=== PATIENT | female | born 1965 | race Caucasian/White ===

== ENCOUNTER 2020-05-03 12:50 | Emergency (ER) | payer OTHER, SELFPAY ==
--- NOTE | ~2020-05-03 | XR_ITS ---
EXAMINATION: XR chest 2V DATE: 05/03/2020 13:24 INDICATION: Cough. TECHNIQUE: Frontal and lateral views of the chest were obtained. COMPARISON: None. FINDINGS: The chest demonstrates clear lungs without pneumonia, pleural effusion, or pneumothorax. Th e heart size is normal. IMPRESSION: 1. No acute cardiopulmonary disease. Reviewed, dictated and finalized at location A. [employer] PHARMACIST
[2020-05-03 12:57] VITALS: BP 139/92; PULSE 97; RESP 14; TEMP 36.5; O2SAT 98
--- NOTE | 2020-05-03 13:15 | ED.URI ---
HPI - URI/Sore Throat General Chief Complaint: Upper Respiratory Infection Stated Complaint: cough and chest ache Source: patient Mode of arrival: ambulatory Limitations: no limitations History of Present Illness HPI Narrative: Patient is a 55-year-old female who presents complaining of cough, congestion, and wheezing x6 days. She denies fever. She reports intermittent shortness of breath during coughing. She denies known exposure to Covid. She denies fever. She denies taking any pyqn-[id number] meds for symptom relief. MD elicited complaint: cough Related Data Home Medications Medication Instructions Recorded Confirmed duloxetine 30 mg PO DAILY 05/03/20 05/03/20 hydrocodone-acetaminophen 1 tablet PO Q6H 05/03/20 05/03/20 pregabalin 75 mg PO DAILY 05/03/20 05/03/20 Allergies Allergy/AdvReac Type Severity Reaction Status Date / Time codeine Allergy Mild Unknown Unverified 05/03/20 13:21 lisinopril AdvReac Cough Verified 05/03/20 13:21 powder AdvReac Other Uncoded 05/03/20 13:22 Review of Systems Review of Systems: Narrative: CONSTITUTIONAL: Denies fever, chills, or sweats. EYES: Denies visual changes, redness, or discharge. ENT: Denies rhinorrhea, congestion, sore throat, or otalgia. CARDIOVASCULAR: Denies chest pain, palpitations, or edema. RESPIRATORY: Reports cough and dyspnea. GASTROINTESTINAL: Denies abdominal pain, nausea, vomiting, or diarrhea. GENITOURINARY: Denies dysuria or hematuria. SKIN: Denies rash or itching. MUSCULOSKELETAL: Denies back pain, joint pain, or myalgia. NEUROLOGIC: Denies headache, numbness, dizziness, or weakness. PSYCHIATRIC: Denies anxiety or depression. [facility] Past Medical History Medical History Back pain with history of spinal surgery Chronic back pain Surgical History Surgical History H/O foot surgery History of hysterectomy Previous back surgery Social History Social History (Updated 05/03/20 @ 13:21 by LUIS F Beach) Smoking status: Current every day smoker Alcohol intake: never Substance use: never Living arrangements: with family Exam Narrative: Exam Narrative: GENERAL: Well-appearing, well-nourished, and in no acute distress. HEAD: Normocephalic, atraumatic. EYES: No redness or drainage. ENT: Mucous membranes pink and moist. CHEST: No respiratory distress. Diminished lung sounds bilaterally, intermittent wheezing HEART: Regular rate and rhythm. EXTREMITIES: Normal range of motion. No edema. SKIN: Warm, dry, no rash. NEURO: No focal deficits. Alert and oriented x3. Gait steady. PSYCH: Normal affect. No signs of depression or anxiety. Course Vital Signs Vital signs: Vital Signs Temperature 36.5 C 05/03/20 12:57 Pulse Rate 97 05/03/20 12:57 Respiratory Rate 14 05/03/20 12:57 Blood Pressure 139/92 H 05/03/20 12:57 Pulse Oximetry 98 05/03/20 12:57 Temperature 36.5 C 05/03/20 12:57 Pulse Rate 97 05/03/20 12:57 Respiratory Rate 14 05/03/20 12:57 Blood Pressure 139/92 H 05/03/20 12:57 Pulse Oximetry 98 05/03/20 12:57 Reviewed. Patient has been instructed to follow-up with her PCP regarding her blood pressure. MDM - URI/Sore Throat MDM Narrative Medical decision making narrative: Chest x-ray negative for acute disease. Patient reports a history of bronchitis, current smoker. Patient to be started on albuterol inhaler. Patient also to be sent for Covid testing. Patient is stable for discharge to home with outpatient follow-up as directed. Patient agrees with plan of care. Differential Diagnosis Differential diagnosis: Likely upper respiratory infection, viral infection and bronchitis Critical Care Time Critical Care Time Critical Care Time: No Discharge Plan Discharge Clinical Impression: Bronchitis, Encounter for laboratory testing for COVID-19 virus Patient Disposition: H
== END 2020-05-03 13:35 | disposition home or self-care (01) ==
PROVIDERS: Emergency Provider Nurse Practitioner
DX: J40 Bronchitis, not specified as acute or chronic (principal); Z20.828 Contact with and (suspected) exposure to other viral communicable diseases; F17.200 Nicotine dependence, unspecified, uncomplicated
CPT/HCPCS: 71046; 99213; G0463

== ENCOUNTER 2021-09-21 16:16 | Emergency (ER) | payer OTHER, SELFPAY ==
[2021-09-21 16:37] VITALS: BP 124/82; PULSE 77; RESP 18; TEMP 36.9; O2SAT 96
--- NOTE | 2021-09-21 17:41 | ED.URI ---
HPI - URI/Sore Throat General Chief Complaint: Upper Respiratory Infection Stated Complaint: cough congestion Time Seen by Provider: 09/21/21 17:41 Source: patient and RN notes reviewed Mode of arrival: ambulatory Limitations: no limitations History of Present Illness HPI Narrative: 56-year-old female presents with concern for 2-week history of productive cough. Reports symptoms are getting worse worse with chest burning with coughing, not being able to sleep at night. Reports she quit smoking 2 weeks ago. She denies fever, bodies, chills, sweats. Reports she is tried multiple qkri-dpa-kjhckoc remedies without relief MD elicited complaint: sore throat Related Data Home Medications Medication Instructions Recorded Confirmed hydrocodone-acetaminophen 1 tablet PO Q6H 05/03/20 09/21/21 Allergies Allergy/AdvReac Type Severity Reaction Status Date / Time codeine Allergy Mild Unknown Verified 09/21/21 17:16 lisinopril AdvReac Cough Verified 09/21/21 17:16 powder AdvReac Other Uncoded 05/03/20 13:22 Review of Systems Review of Systems: CONSTITUTIONAL: Denies malaise, chills, sweats, or fever. EYES: Denies visual changes, redness, or discharge. ENT: Reports rhinorrhea. Denies congestion, sinus pain, otalgia and sore throat. CARDIOVASCULAR: Denies chest pain, palpitations, or edema. RESPIRATORY: Reports persistent cough. Denies dyspnea. GASTROINTESTINAL: Denies abdominal pain, nausea, vomiting, diarrhea SKIN: Denies rash or itching. MUSCULOSKELETAL: Denies myalgia. NEUROLOGIC: Denies headache. All systems reviewed & are unremarkable except as noted in HPI and below PMFSH Past Medical History Medical History (Updated 09/21/21 @ 17:46 by Harriett Cerda NP) Back pain with history of spinal surgery Chronic back pain Cough Surgical History Surgical History H/O foot surgery History of hysterectomy Previous back surgery Social History Social History (Updated 05/03/20 @ 13:21 by Tiffanie Francisco, [employer]) Smoking status: Current every day smoker Alcohol intake: never Substance use: never Comments At time of signature, agree with nursing past medical, surgical, social and family history. There is no relevant family history pertinent to the presenting complaint Exam Narrative: GENERAL: Well-appearing, well-nourished, and in no acute distress. HEAD: Normocephalic EYES: PERRLA, conjunctivae clear ENT: Nares clear, clear discharge. Mucous membranes moist. TM pearly fountain with dull light reflex bilaterally; no tragal tenderness. Oropharynx not erythematous without lesions. Tonsils not enlarged and without exudate, no drooling, no hoarseness, no trismus, uvula midline. NECK: Supple. No lymphadenopathy CHEST: Clear to auscultation, breath sounds equal. No wheezing, rhonchi, rales, or stridor. No respiratory distress, speaks in full sentences. HEART: Regular rate and rhythm. No murmur heard. SKIN: Warm, dry, no rash. NEURO: Alert and oriented x3. PSYCH: Normal mood and affect Course Course Emergency Course: Patient is aware of diagnosis, understands and agrees to treatment plan. Anticipatory guidance given. Patient agrees to follow-up as directed and is aware of reasons to seek care at the emergency department. Portions of this record may have been created with voice recognition software Level of Care: Express Care Visit Vital Signs Vital signs: Vital Signs Temperature 98.5 F 09/21/21 16:37 Pulse Rate 77 09/21/21 16:37 Respiratory Rate 18 09/21/21 16:37 Blood Pressure 124/82 09/21/21 16:37 Pulse Oximetry 96 09/21/21 16:37 Temperature 98.5 F 09/21/21 16:37 Pulse Rate 77 09/21/21 16:37 Respiratory Rate 18 09/21/21 16:37 Blood Pressure 124/82 09/21/21 16:37 Pulse Oximetry 96 09/21/21 16:37 Reviewed. MDM - URI/Sore Throat MDM Narrative Medical decision making narrative: Differential diagnosis considered: [facility]ady
== END 2021-09-21 17:52 | disposition home or self-care (01) ==
PROVIDERS: Emergency Provider Nurse Practitioner; PCP Internal Medicine
DX: J06.9 Acute upper respiratory infection, unspecified (principal)
CPT/HCPCS: 99213; G0463

== ENCOUNTER 2022-12-04 12:16 | Emergency (ER) | payer OTHER, SELFPAY ==
[2022-12-04 12:27] VITALS: BP 144/71; PULSE 90; RESP 16; TEMP 36.4; O2SAT 100
--- NOTE | 2022-12-04 13:15 | ED.GENADULT ---
HPI - General Adult General Chief complaint: Upper Respiratory Infection Stated complaint: Cough Source: patient Mode of arrival: ambulatory Limitations: no limitations History of Present Illness HPI narrative: Patient presents for evaluation of cough. Symptom onset 2 weeks ago. At time of symptom onset she also had body aches, sore throat, nausea, vomiting. Those symptoms have all resolved. Cough is productive of clear sputum. She denies any shortness of breath. No fever or chills. No recent sick contacts to her knowledge. She smokes 1 ppd. She has tried DayQuil, NyQuil, delsym for her symptoms without considerable improvement. She has had bronchitis in the past and this feels similar. Historically she has responded well to steroids. Related Data Home Medications Medication Instructions Recorded Confirmed hydrocodone 5 mg-acetaminophen 325 1 tablet PO Q6H 05/03/20 12/04/22 mg tablet albuterol sulfate 90 mcg/actuation 2 puff inhalation Q4H PRN 12/04/22 12/04/22 aerosol inhaler Shortness Of Breath Or Wheezing duloxetine 30 mg capsule,delayed 30 mg PO DAILY 12/04/22 12/04/22 release losartan 25 mg tablet 25 mg PO DAILY 12/04/22 12/04/22 pregabalin 75 mg capsule 75 mg PO BID 12/04/22 12/04/22 Allergies Allergy/AdvReac Type Severity Reaction Status Date / Time codeine Allergy Mild Unknown Verified 09/21/21 17:16 lisinopril AdvReac Mild Cough Verified 12/04/22 12:25 powder AdvReac Mild Other Uncoded 12/04/22 12:25 Review of Systems Review of Systems: CONSTITUTIONAL: Denies fever, chills, or sweats. EYES: Denies visual changes, redness, or discharge. ENT: Denies rhinorrhea, congestion, sore throat, or otalgia. CARDIOVASCULAR: Denies chest pain, palpitations, or edema. RESPIRATORY: Reports productive cough of clear sputum. Denies shortness of breath. GASTROINTESTINAL: Denies abdominal pain, nausea, vomiting, or diarrhea. GENITOURINARY: Denies dysuria or hematuria. SKIN: Denies rash or itching. MUSCULOSKELETAL: Denies back pain, joint pain, or myalgia. NEUROLOGIC: Denies headache, numbness, dizziness, or weakness. PSYCHIATRIC: Denies anxiety or depression. [facility] Past Medical History Medical History Back pain with history of spinal surgery Chronic back pain Cough Surgical History Surgical History (Reviewed 12/04/22 @ 13:31 by Carmelo Delvalle [facility], ) H/O foot surgery History of hysterectomy Previous back surgery Family History Family History (Updated 12/04/22 @ 13:31 by Carmelo Delvalle [facility], ) Mother Family history non-contributory Social History Social History (Updated 12/04/22 @ 13:32 by Carmelo Delvalle [facility], ) Smoking packs per day: 1 Smoking cigarettes per day: 20.0 Smoking status: Current every day smoker Alcohol intake: never Substance use: never Living arrangements: with family Gender identity (if verbalized by the patient): Female Spiritual care concerns: No Exam Narrative: GENERAL: Well-appearing, well-nourished, and in no acute distress. HEAD: Normocephalic, atraumatic. EYES: PERRLA and EOMI. ENT: Nares clear, no rhinorrhea or epistaxis. Mucous membranes moist. Oropharynx without tonsillar hypertrophy exudate or other lesions. Bilateral TMs pearly fountain nonbulging NECK: Supple. No adenopathy or masses. No carotid bruits or JVD CHEST: Clear to auscultation. No respiratory distress. No wheezes rales or rhonchi HEART: Regular rate and rhythm. No murmur heard. Normal peripheral pulses. ABDOMEN: Soft, nontender, nondistended, normal active bowel sounds. EXTREMITIES: Normal range of motion. No edema. SKIN: Warm, dry, no rash. NEURO: No focal deficits. Alert and oriented x3. PSYCH: Normal mood and affect. Course Course Emergency Course: This is a 57-year-old female who presented for evaluation of cough. It I offered to check a chest x-ray, which she declined. She indicates s
== END 2022-12-04 13:00 | disposition home or self-care (01) ==
PROVIDERS: Emergency Provider Nurse Practitioner; PCP Family Medicine
DX: J40 Bronchitis, not specified as acute or chronic (principal); F17.210 Nicotine dependence, cigarettes, uncomplicated
CPT/HCPCS: 99213; G0463

== ENCOUNTER 2023-11-08 17:53 | Emergency (ER) | payer OTHER, SELFPAY ==
[2023-11-08 17:58] VITALS: BP 168/85; PULSE 70; RESP 18; TEMP 36.5; O2SAT 100
--- NOTE | 2023-11-08 18:26 | ED.URI ---
HPI - URI/Sore Throat General Chief Complaint: Upper Respiratory Infection Stated Complaint: Cough Source: patient Mode of arrival: ambulatory Limitations: no limitations History of Present Illness HPI Narrative: 58-year-old female presented for complaint of productive cough over the past 3 weeks. She endorses nasal congestion and drainage. States cough causes lack of sleep and has led to vomiting. Has taken multiple lamo-tdr-xhoprzw medication without relief. She states she ran out of her albuterol inhaler earlier in the week. She denies shortness of breath, chest pain, heart racing, nausea, vomiting, diarrhea, fevers or chills. Currently trying to quit smoking, down to half pack per day from 1.5ppd. Related Data Home Medications Medication Instructions Recorded Confirmed duloxetine 30 mg capsule,delayed 30 mg PO DAILY 12/04/22 11/08/23 release losartan 25 mg tablet 25 mg PO DAILY 12/04/22 11/08/23 pregabalin 75 mg capsule 75 mg PO BID 12/04/22 11/08/23 pantoprazole 40 mg tablet,delayed 40 mg PO DAILY 11/08/23 11/08/23 release Allergies Allergy/AdvReac Type Severity Reaction Status Date / Time codeine Allergy Mild Unknown Verified 11/08/23 18:10 lisinopril AdvReac Mild Cough Verified 11/08/23 18:10 powder AdvReac Mild Other Uncoded 11/08/23 18:10 Review of Systems Review of Systems: CONSTITUTIONAL: Denies body aches, fever, chills, or sweats. EYES: Denies visual changes, redness, or discharge. ENT: reports rhinorrhea, congestion, denies sore throat, or otalgia. CARDIOVASCULAR: Denies chest pain, palpitations, or edema. RESPIRATORY: Reports cough, denies sob, wheezing. GASTROINTESTINAL: Denies abdominal pain, nausea, vomiting, or diarrhea. SKIN: Denies rash, itching, or wounds. MUSCULOSKELETAL: Denies back pain, joint pain, or myalgia. NEUROLOGIC: Denies headache, numbness, tingling, or weakness. All systems reviewed & are unremarkable except as noted in HPI and below PMFSH Past Medical History Medical History Back pain with history of spinal surgery Chronic back pain Cough Surgical History Surgical History H/O foot surgery History of hysterectomy Previous back surgery Family History Family History Mother Family history non-contributory Social History Social History Smoking packs per day: 1 Smoking cigarettes per day: 20.0 Smoking status: Current every day smoker Alcohol intake: never Substance use: never Living arrangements: with family Gender identity (if verbalized by the patient): Female Spiritual care concerns: No Comments At time of signature, I have reviewed and agree with nursing past medical, surgical, social and family history unless otherwise noted. Please see nursing chart for further information. There is no relevant family history pertinent to the presenting complaint Exam Narrative: GENERAL: Well-appearing, in no acute distress. EYES: EOMI. No redness or drainage. Conjunctivae normal. ENT: Mucous membranes pink and moist. No rhinorrhea. TMs normal bilaterally. Throat normal. Uvula midline. NECK: Normal AROM. Supple. CHEST: No respiratory distress. Lungs clear and diminished. HEART: Regular rate and rhythm. No murmur appreciated. ABDOMEN: Soft, nontender, nondistended, normal active bowel sounds. EXTREMITIES: Normal range of motion. No edema. SKIN: Warm, dry, no rash. Capillary refill normal. Normal skin turgor. NEURO: Alert and oriented x3. Gait steady. PSYCH: Normal affect. Course Course Emergency Course: Patient is aware of diagnosis, understands and agrees to treatment plan. Anticipatory guidance given. Patient agrees to follow-up as directed and is aware of reasons to seek care at the emergency departmen
== END 2023-11-08 18:45 | disposition home or self-care (01) ==
PROVIDERS: Emergency Provider Nurse Practitioner Family; PCP Family Medicine
DX: J40 Bronchitis, not specified as acute or chronic (principal); F17.210 Nicotine dependence, cigarettes, uncomplicated
CPT/HCPCS: 99213; G0463

== ENCOUNTER 2024-08-17 11:04 | Emergency (ER) | payer OTHER, SELFPAY ==
[2024-08-17 11:16] VITALS: BP 170/84; PULSE 55; RESP 20; TEMP 36.6; O2SAT 97
--- OUTSIDE RECORDS SUMMARY | 2024-08-17 11:16 | XMS_ITS | Clinical Summary ---
Author Organization [facility] Address [address], [facility] [address] [place] [address] Phone Care Team Providers Care Director Fraud Name Role Phone Hari Alcantara MD Primary Care Provider [phone] Allergies Active Allergy Reactions Criticality Noted Date Comments Codeine Other (see Comments) 07/29/2015 CHEST PAIN Nsaids Nausea 03/03/2017 Medications naproxen (NAPROSYN) 500 MG Tablet Take 1 Tab by mouth 2 times daily as needed for Pain. 20 Tab 0 6 Active losartan (COZAAR) 50 MG Tablet Take 1 Tab by mouth 2 times daily. 60 Tab 3 6 Active Additional Information Patient taking differently:50 mg OralDAILY, Reported on 02/02/2019 amLODIPine (NORVASC) 5 MG Tablet Take 1 Tab by mouth daily. 30 Tab 3 6 Active citalopram (CELEXA) 20 MG Tablet Take 1 Tab by mouth daily. 30 Tab 3 6 Active diazePAM (VALIUM) 5 MG Tablet Take 1 Tab by mouth every 8 hours as needed for Muscle spasms. 30 Tab 7 Active HYDROcodone-acet aminophen (NORCO) 5-325 MG Tablet Take 1 Tab by mouth every 8 hours as needed for Moderate or more severe pain. 15 Tab 9 Active Omeprazole 20 MG Tablet Delayed Response Take by mouth. Activ e methocarbamol (ROBAXIN) 500 MG Tablet Take 2 Tabs by mouth 3 times daily. 30 Tab 9 Active methylPREDNISolo ne (MEDROL DOSPACK) 4 MG Tablet Therapy Pack See product package insert for dosing schedule 21 Tab 9 Active HYDROcodone-acet aminophen (NORCO) 5-325 MG TabletIndication s:Acute exacerbation of chronic low back pain Take 1 Tablet by mouth every 6 hours as needed for Moderate or more severe pain. 15 Tablet 4 Active methylPREDNISolo ne (MEDROL DOSPACK) 4 MG Tablet Therapy Pack See product package insert for dosing schedule 21 Tablet 4 Active Active Problems Problem Noted Date Diagnosed Date Lumbar spinal stenosis 08/05/2015 Immunizations Immunization Administration Dates Next Due Influenza Vaccine greater than 3 yrs 03/19/2015 03/19/2016 Family History Medical History Relation Name Comments Heart Attack Father Stroke Father Heart Disease Mother Relation Name Status Comments Father Mother Alive Social History Tobacco Use Types Packs/Day Years Used Date Smoking Tobacco: Every Day Cigarettes Smokeless Tobacco: Never Alcohol Use Standard Drinks/Week Comments No 0 (1 standard drink = 0.6 oz pur e alcohol) Comments No Sex and Gender Information Value Date Recorded Sex Assigned at Not on file Legal Sex Female 7:35 PM CDT Gender Identity Not on file Sexual Orientation Not on file Last Filed Vital Signs Vital Sign Reading Time Taken Comments Blood Pressure 148/73 01/28/2024 12:48 PM CDT Pulse 68 01/28/2024 12:48 PM CDT Temperature 36.9 C (98.4 F) 01/28/2024 11:51 AM CDT Respiratory Rate 16 01/28/2024 12:48 PM CDT Oxygen Saturation 99% 01/28/2024 12:48 PM CDT Inhaled Oxygen Concentration - - Weight 108.4 kg (239 lb) 01/28/2024 11:51 AM CDT Height 168.9 cm (5' 6.5 ) 01/28/2024 11:51 AM CD T Body Mass Index 38 01/28/2024 11:51 AM CDT Plan of Treatment Health Maintenance Due Date Last Done Comments Hepatitis C Virus (HCV) Screening 1965 Mammogram 1965 TdaP Immunization 1965 Pneumococcal Immunization Combined (1 of 2 - PCV) 1971 Hepatitis B Immunization (1 of 3 - 19+ 3-dose series) 1984 Pneumococcal Immunization (50+ years) (1 of 2 - PCV) 1984 Pap Smear 1986 Cervical Cancer Screening (CCS) 1995 HPV/Cotest 1995 Colonoscopy 2010 Colorectal Cancer Screening 2010 Cologuard 2015 Immunochemical Fecal Occult Blood 2015 Zoster Immunization (1 of 2) 2015 Influenza Immunization (#1) 02/25/202403/26, 05/23/2022, 04/05/2018, Additional history exists SARS-COV-2 Immunization ( season) 2024 12/24/2020, 11/26/2020 Respiratory Syncytial Virus (RSV) Immunization (Adult) (1 - 1-dose 75+ series) 2040 Meningococcal Immunization (ACWY) Aged Out No longer eligible based on patient's age to complete this topic Rotavirus Immunization Aged Out No lo nger eligible based on patient's age to complete this topic Insurance MEDICAID [place] Care Teams Director Fraud Relationship Specialty Start Date End Date Hari Alcantara MD [address] [place] [address] PCP - General Family Medicine 10/25/23
--- OUTSIDE RECORDS SUMMARY | 2024-08-17 11:16 | XMS_ITS | Data Portability ---
[facility] Address [address] [place] [address] Care Team Providers Care Surveyor Chain Helper Name Role Phone KRIS BARBOSAAN Primary Care Provider Assessment Encounter Date Assessment Date Assessment LastModified by Organization Details LastModified Time 09/14/2022 09/14/2022 Pertinent paperwork was addressed. [email or web address] Not available 09/15/2022 14:22:18 04/11/2023 04/11/2023 Workup will proceed as described below. [email or web address] Not available 04/15/2023 08:43:40 10/19/2023 10/19/2023 Workup will proceed as described below including a GI referral. Not available 10/24/2023 07:56:40 01/18/2024 01/18/2024 Workup will proceed with an MRI lumbar spine. [email or web address] Not available 01/24/2024 07:18:52 Plan of Treatment Reminders Order Date Submit Date Provider Last Modified By Organization Details Last Modified Time Details Appointments None record ed. Lab noninv asive colore ctal cancer DNA + occult blood screen ing, QL, stool 2023 024 [facility] (Cologuard Orders Only), [address], [address], [place], [address], 17:58:05 BNP (B-typ e natriu retic peptid e), serum or plasma 2022 023 [facility], [address] [facility], [facility], [place], [address], 3 11:14:10 CMP, serum or plasma 2022 023 [facility], [address] [facility], [place], [address], 3 07:14:40 CBC w/ auto diff 2022 023 [facility], [address] [facility] [address], [place], [address], 3 07:14:41 HbA1c (hemog lobin A1c), blood 2021 022 [email or web address] In-Office Order, Internal Use Only DO Not Attach Compendium DO Not Attach Compendium, Do Not Delete/merge, [id number] 2 14:06:02 noninv asive colore ctal cancer DNA + occult blood screen ing, QL, stool 2021 022 [place] [facility] (Cologuard Orders Only), [address], [address], [place], [address], 3 11:03:38 Referral pain manage ment referr al 2023 024 [facility], [address], [place], [address], 4 15:10:25 gastro entero logist referr al - for possib le EGD in pt with recurr ent nausea and 30# wt loss since Octobe r 2022 024 [email or web address] Geoffrey Gross MD, [address], [place], [address], 4 16:03:28 orthop edic surgeo n referr al 2022 023 [facility] Elian Garcia MD, 4 [facility] , [address], [place], [address], 4 12:36:55 orthop edic surgeo n referr al 2021 [facility] Garcia MD, 4 [facility] , [address], [place], [address], 3 10:52:41 pain manage ment referr al 2021 L[facility] Kiser MD, 2 [facility] , [address], [place], [address], 2 11:12:56 Procedures None record ed. Surgeries None record ed. Imaging MRI, lumbar spine, w/o contra st - pt has become to have urinar y and fecal incont inence for one month now 2023 024 [facility], [address] [place], [address], 4 09:40:09 MAMMO, screen ing, bilate ral 2023 024 [email or web address] [facility] Scheduling, [address] [facility] [place], [address], 4 06:40:51 MAMMO, screen ing, bilate ral 2021 022 [facility] ([facility]) Scheduling, [address] [place], [address], 2 12:45:00 Medication Orders pantop razole 40 mg tablet ,delay ed releas e 2023 024 [place] [id number], [address], [place], [place], [id number], 4 14:51:22 pantop razole 40 mg tablet ,delay ed releas e 2023 024 [facility] #[id number], [address], [place], [place], [id number], 4 14:34:13 furose mide 20 mg tablet 2022 023 [email or web address] [facility] #77299, [address], [place], [place], [id number], 3 08:41:27 potass ium chlori de ER 10 mEq tablet ,exten ded releas e 2022 023 [facility] #[id number], [address], [place], [place], [id number], 3 11:47:18 losart an 25 mg tablet 2021 022 [facility] #53106, [address], [place], [place], [id number], 2 12:24:34 Patient TargetsNo targets recorded. Patient Instructions Encounter Date Encounter Id Patient Instructions Last Modified By Organization Details Last Modified Time 05/23/2022 [id number] uso seguro de lo s analg sicos opioides: instrucciones de cuidado - [safe use of opioid pain medicine: care instructions] [email or web address] Not available 05/23/2022 12:25:24 mammogram: about this test [email or web address] Not available 05/23/2022 12:27:16 Quitting Tobacco : Care Instructions [email or web address] Not available 05/23/2022 14:06:02 gastroesophageal reflux disease (GERD): care instructions [email or web address] Not available 05/23/2022 12:30:13 A healthy lifest yle: care instructions [email or web address] Not available 05/23/2022 14:06:02 learning about h igh blood pressure [email or web address] Not available 05/23/2022 12:24:24 09/14/2022 [id number] Quitting Tobacco : Care Instructions [email or web address] Not available 09/14/2022 12:51:44 A healthy lifest yle: care instructions [email or web address] Not available 09/14/2022 12:51:44 04/11/2023 [id number] leg and ankle ed rosie: care instructions [email or web address] Not available 04/11/2023 11:45:54 10/19/2023 [id number] mammogram: about this test [email or web address] Not available 10/19/2023 14:37:49 gastroesophageal reflux disease (GERD): care instructions [email or web address] Not available 10/19/2023 14:34:07 01/18/2024 [id number] A healthy lifest yle: care instructions [email or web address] Not available 01/18/2024 14:50:56 Reason for Referral Pain Management Referral for Chronic low back pain Referring Physician: Hari Barbosa [facility], Encounter Date: 05/23/2022 Orthopedic Surgeon Referral for Acquired trigger finger of right middle finger Referring Physician: Hari Barbosa [facility], Encounter Date: 05/23/2022 Orthopedic Surgeon Referral for Bilateral hip joint pain Referring Physician: Hari Barbosa [facility], Encounter Date: 04/11/2023 Drama Critic Referral for Gastroesophageal reflux disease for possible EGD in pt with recurrent nausea and 30# wt loss since March 2023 Referring Physician: Hari Barbosa [facility], Encounter Date: 10/19/2023 Pain Management Referral for Chronic back pain Referring Physician: Hari Barbosa [facility], Encounter Date: 01/18/2024 Results Created Date Observation Date Name Description Value Unit Range Abnormal Flag Note LastModifiedBy Organization Detail LastModifiedTime 05/23/2005/23/2023 COLOG UARD cologuard result Cancel led - Order d not applic able Not Available [facility] (Cologuard Orders Only) [address], [facility] [place], [address], 05/23/2023 11:03:37 05/23/20 22 05/23/2022 HbA1c (hemo globi n A1c), blood HbA1c 5.3 Not Available In-Office Order Internal Use Only DO Not Attach Compendium DO Not Attach Compendium, Do Not Delete/merge, [id number] 05/23/2022 12:05:44 09/08/19 23 09/07/2022 LIPID PANEL cholesterol, total 168.1 mg/dL 140.0- 200.0 Not Available [facility] [address] [place] [address], [address], 09/07/2022 20:09:10 09/08/19 23 09/07/2022 LIPID PANEL triglyceride s 68 mg/dL <=150 Not Available [facility] Department [address] [place] [address], [address], 09/07/2022 20:09:10 09/08/19 23 09/07/2022 LIPID PANEL HDL cholesterol 63.1 mg/dL 40.0-1 00.0 Not Available [facility] [address] [place] [address], [address], 09/07/2022 20:09:10 09/08/19 23 09/07/2022 LIPID PANEL VLDL cholesterol stella 13.60 mg/dL 5.00-4 0.00 Not Available [facility] [address] [place] [address], [address], 09/07/2022 20:09:10 09/08/19 23 09/07/2022 LIPID PANEL LDL chol calc ([facility]) 91.9 Not Available [facility] Department [address] [place] [address], [address], 09/07/2022 20:09:10 09/08/19 23 09/07/2022 COMP. METAB OLIC PANEL (14) glucose 88 mg/dL 65-99 ANION GP 11.0 mmol/ L N OSMOL 280.0 mOsM/ L N REFER ENCE RANGE : 275.0 -301. 0 Not Available [facility] [address] [place], [address], 09/07/2022 20:09:10 09/08/19 23 09/07/2022 COMP. METAB OLIC PANEL (14) BUN 11 mg/dL 8-26 Not Available [facility] [address] [place] [address], [address], 09/07/2022 20:09:10 09/08/19 23 09/07/2022 COMP. METAB OLIC PANEL (14) creatinine 0.72 mg/dL 0.50-1 .40 Not Available [facility] [address] [place], [address], 09/07/2022 20:09:10 09/08/19 23 09/07/2022 COMP. METAB OLIC PANEL (14) eGFR 97 mL/mi n/1.7 3 >=60 Not Available [facility] [address] [place] [address], [address], 09/07/2022 20:09:10 09/08/19 23 09/07/2022 COMP. METAB OLIC PANEL (14) BUN/creatini ne ratio 15.7 Not Available [facility] Department [address] [place] [address], [address], 09/07/2022 20:09:10 09/08/19 23 09/07/2022 COMP. METAB OLIC PANEL (14) sodium 141.0 mmol/ L 136.0- 144.0 Not Available [facility] [address] [place] [address], [address], 09/07/2022 20:09:10 09/08/19 23 09/07/2022 COMP. METAB OLIC PANEL (14) potassium 4.2 mmol/ L 3.5-5. 3 Not Available [facility] [address] [place], [address], 09/07/2022 20:09:10 09/08/19 23 09/07/2022 COMP. METAB OLIC PANEL (14) chloride 106 mmol/ l 101-11 1 Not Available [facility] [address] [place] [address], [address], 09/07/2022 20:09:10 09/08/19 23 09/07/2022 COMP. METAB OLIC PANEL (14) carbon dioxide, total 28.5 mmol/ L 21.0-3 2.0 Not Available [facility] [address] [place], [address], 09/07/2022 20:09:10 09/08/19 23 09/07/2022 COMP. METAB OLIC PANEL (14) calcium 8.5 mg/dL 8.2-10 .0 Not Available [facility] [address] [place], [address], 09/07/2022 20:09:10 09/08/19 23 09/07/2022 COMP. METAB OLIC PANEL (14) protein, total 6.2 g/dL 6.7-8. 2 below low normal Not Available [facility] [address] [place], [address], 09/07/2022 20:09:10 09/08/19 23 09/07/2022 COMP. METAB OLIC PANEL (14) albumin 3.7 g/dL 3.5-5. 5 Not Available [facility] [address] [place], [address], 09/07/2022 20:09:10 09/08/19 23 09/07/2022 COMP. METAB OLIC PANEL (14) globulin, total 2.5 g/dL 1.5-4. 5 Not Available [facility] [address] [place], [address], 09/07/2022 20:09:10 09/08/19 23 09/07/2022 COMP. METAB OLIC PANEL (14) A/G ratio 1.5 Not Available [facility] Department [address] [place], [address], 09/07/2022 20:09:10 09/08/19 23 09/07/2022 COMP. METAB OLIC PANEL (14) bilirubin, total 0.3 mg/dL 0.0-1. 2 Not Available [facility] [address] [place], [address], 09/07/2022 20:09:10 09/08/19 23 09/07/2022 COMP. METAB OLIC PANEL (14) alkaline phosphatase 149.0 IU/L 42.0-1 21.0 above high normal Not Available [facility] [address] [place], [address], 09/07/2022 20:09:10 09/08/19 23 09/07/2022 COMP. METAB OLIC PANEL (14) AST (SGOT) 22.7 U/L 10.0-4 2.0 Not Available [facility] [address] [place], [address], 09/07/2022 20:09:10 09/08/19 23 09/07/2022 COMP. METAB OLIC PANEL (14) ALT (SGPT) 19.6 U/L 10.0-6 0.0 Not Available [facility] [address] [place], [address], 09/07/2022 20:09:10 09/08/19 23 09/07/2022 CBC WITH DIFFE RENTI AL/PL ATELE T WBC 5.8 K/uL 3.4-10 .8 Not Available [facility] [address] [place], [address], 09/07/2022 20:09:11 09/08/19 23 09/07/2022 CBC WITH DIFFE RENTI AL/PL ATELE T RBC 3.6 M/uL 4.2-5. 4 below low normal Not Available [facility] [address] [place], [address], 09/07/2022 20:09:11 09/08/19 23 09/07/2022 CBC WITH DIFFE RENTI AL/PL ATELE T hemoglobin 11.5 g/dL 11.5-1 5.5 Not Available [facility] [address] [place], [address], 09/07/2022 20:09:11 09/08/19 23 09/07/2022 CBC WITH DIFFE RENTI AL/PL ATELE T hematocrit 37.6 % 36.0-4 8.0 Not Available [facility] [address] [place], [address], 09/07/2022 20:09:11 09/08/19 23 09/07/2022 CBC WITH DIFFE RENTI AL/PL ATELE T MCV 104 fL 80-95 above high normal Not Available [facility] [address] [place], [address], 09/07/2022 20:09:11 09/08/19 23 09/07/2022 CBC WITH DIFFE RENTI AL/PL ATELE T MCH 32 pg 27-32 Not Available [facility] [address] [place], [address], 09/07/2022 20:09:11 09/08/19 23 09/07/2022 CBC WITH DIFFE RENTI AL/PL ATELE T MCHC 31 g/dL 32-36 below low normal Not Available [facility] [address] [place], [address], 09/07/2022 20:09:11 09/08/19 23 09/07/2022 CBC WITH DIFFE RENTI AL/PL ATELE T RDW 14.2 % 11.5-1 4.5 Not Available [facility] [address] [place], [address], 09/07/2022 20:09:11 09/08/19 23 09/07/2022 CBC WITH DIFFE RENTI AL/PL ATELE T platelets 266 K/uL 155-37 9 MPV 10.1 FL 8.9-1 2.7 N Not Available [facility] [address] [place], [address], 09/07/2022 20:09:11 09/08/19 23 09/07/2022 CBC WITH DIFFE RENTI AL/PL ATELE T neutrophils 50.9 % 40.0-7 4.0 Not Available [facility] [address] [place], [address], 09/07/2022 20:09:11 09/08/19 23 09/07/2022 CBC WITH DIFFE RENTI AL/PL ATELE T lymphs 36.4 % 14.0-4 6.0 Not Available [facility] [address] [place], [address], 09/07/2022 20:09:11 09/08/19 23 09/07/2022 CBC WITH DIFFE RENTI AL/PL ATELE T monocytes 7.9 % 4.0-12 .0 Not Available [facility] [address] [place], [address], 09/07/2022 20:09:11 09/08/19 23 09/07/2022 CBC WITH DIFFE RENTI AL/PL ATELE T eos 4 % 0-5 Not Available [facility] [address] [place], [address], 09/07/2022 20:09:11 09/08/19 23 09/07/2022 CBC WITH DIFFE RENTI AL/PL ATELE T basos 0.7 % 0.0-1. 0 Not Available [facility] [address] [place], [address], 09/07/2022 20:09:11 09/08/19 23 09/07/2022 CBC WITH DIFFE RENTI AL/PL ATELE T neutrophils (absolute) 3.0 K/uL 1.4-7. 0 Not Available [facility] [address] [place], [address], 09/07/2022 20:09:11 09/08/19 23 09/07/2022 CBC WITH DIFFE RENTI AL/PL ATELE T lymphs (absolute) 2.1 K/uL 0.7-3. 1 Not Available [facility] [address] [place], [address], 09/07/2022 20:09:11 09/08/19 23 09/07/2022 CBC WITH DIFFE RENTI AL/PL ATELE T monocytes(ab solute) 0.5 K/uL 0.1-0. 9 Not Available [facility] [address] [place], [address], 09/07/2022 20:09:11 09/08/19 23 09/07/2022 CBC WITH DIFFE RENTI AL/PL ATELE T eos (absolute) 0.2 K/uL 0.0-0. 4 Not Available [facility] [address] [place], [address], 09/07/2022 20:09:11 09/08/19 23 09/07/2022 CBC WITH DIFFE RENTI AL/PL ATELE T baso (absolute) 0.0 K/uL 0.0-0. 3 Not Available [facility] [address] [place], [address], 09/07/2022 20:09:11 09/08/19 23 09/07/2022 CBC WITH DIFFE RENTI AL/PL ATELE T immature granulocytes 0.5 % Not Available [facility] Department [address] [place], [address], 09/07/2022 20:09:11 09/08/19 23 09/07/2022 CBC WITH DIFFE RENTI AL/PL ATELE T immature grans (abs) 0.0 K/uL Not Available [facility] Department [address] [place], [address], 09/07/2022 20:09:11 09/08/19 23 09/07/2022 CBC WITH DIFFE RENTI AL/PL ATELE T NRBC 0 % Not Available [facility] [address] [place], [address], 09/07/2022 20:09:11 09/08/19 23 09/08/2022 TSH TSH 3.510 uIU/m L 0.450- 4.500 Not Available [facility]) [address] [place], [address], 09/08/2022 06:14:57 04/11/20 23 04/12/2023 COMP. METAB OLIC PANEL (14) glucose 91 mg/dL 70-99 Not Available [facility] ([facility]) [address] [place], [address], 04/12/2023 07:14:40 04/11/2004/12/2023 COMP. METAB OLIC PANEL (14) BUN 9 mg/dL 6-24 Not Available [facility] ([facility]) [address] [place], [address], 04/12/2023 07:14:40 04/11/20 23 04/12/2023 COMP. METAB OLIC PANEL (14) creatinine 0.72 mg/dL 0.57-1 .00 Not Available [facility] ([facility]) [address] [place], [address], 04/12/2023 07:14:40 04/11/20 23 04/12/2023 COMP. METAB OLIC PANEL (14) eGFR 97 mL/mi n/1.7 3 >59 Not Available [facility] ([facility]) [address] [place], [address], 04/12/2023 07:14:40 04/11/20 23 04/12/2023 COMP. METAB OLIC PANEL (14) BUN/creatini ne ratio 13 9-23 Not Available [facility] ([facility]) [address] [place], [address], 04/12/2023 07:14:40 04/11/20 23 04/12/2023 COMP. METAB OLIC PANEL (14) sodium 144 mmol/ L 134-14 4 Not Available [facility] ([facility]) [address] [facility] [place], [address], 04/12/2023 07:14:40 04/11/20 23 04/12/2023 COMP. METAB OLIC PANEL (14) potassium 3.9 mmol/ L 3.5-5. 2 Not Available [facility] ([facility]) [address] [facility] [place], [address], 04/12/2023 07:14:40 04/11/20 23 04/12/2023 COMP. METAB OLIC PANEL (14) chloride 105 mmol/ L 96-106 Not Available [facility] ([facility]) [address] [facility], [place], [address], 04/12/2023 07:14:40 04/11/2004/12/2023 COMP. METAB OLIC PANEL (14) carbon dioxide, total 26 mmol/ L 20-29 Not Available [facility] ([facility]) [address] [facility] [place], [address], 04/12/2023 07:14:40 04/11/2004/12/2023 COMP. METAB OLIC PANEL (14) calcium 8.5 mg/dL 8.7-10 .2 below low normal Not Available [facility] ([facility]) [address] [facility], [place], [address], 04/12/2023 07:14:40 04/11/2004/12/2023 COMP. METAB OLIC PANEL (14) protein, total 6.2 g/dL 6.0-8. 5 Not Available [facility] ([facility]) [address] [facility] [place], [address], 04/12/2023 07:14:40 04/11/20 23 04/12/2023 COMP. METAB OLIC PANEL (14) albumin 3.9 g/dL 3.8-4. 9 Not Available [facility] ([facility]) [address] [facility], [place], [address], 04/12/2023 07:14:40 04/11/20 23 04/12/2023 COMP. METAB OLIC PANEL (14) globulin, total 2.3 g/dL 1.5-4. 5 Not Available [facility] ([facility]) [address] [facility], [place], [address], 04/12/2023 07:14:40 04/11/20 23 04/12/2023 COMP. METAB OLIC PANEL (14) A/G ratio 1.7 1.2-2. 2 Not Available [facility] ([facility]) [address] [facility], [place], [address], 04/12/2023 07:14:40 04/11/20 23 04/12/2023 COMP. METAB OLIC PANEL (14) bilirubin, total 0.4 mg/dL 0.0-1. 2 Not Available [facility] ([facility]) [address] [facility], [place], [address], 04/12/2023 07:14:40 04/11/20 23 04/12/2023 COMP. METAB OLIC PANEL (14) alkaline phosphatase 127 IU/L 44-121 above high normal Not Available [facility] ([facility]) [address] [facility], [place], [address], 04/12/2023 07:14:40 04/11/20 23 04/12/2023 COMP. METAB OLIC PANEL (14) AST (SGOT) 14 IU/L 0-40 Not Available [facility] ([facility]) [address] [facility], [place], [address], 04/12/2023 07:14:40 04/11/20 23 04/12/2023 COMP. METAB OLIC PANEL (14) ALT (SGPT) 9 IU/L 0-32 Not Available [facility] ([facility]) [address] [facility], [place], [address], 04/12/2023 07:14:40 04/11/2004/12/2023 CBC WITH DIFFE RENTI AL/PL ATELE T WBC 4.2 x10e3 /uL 3.4-10 .8 Not Available [facility] ([facility]) [address] [facility], [place], [address], 04/12/2023 07:14:41 04/11/2004/12/2023 CBC WITH DIFFE RENTI AL/PL ATELE T RBC 3.72 x10e6 /uL 3.77-5 .28 below low normal Not Available [facility] ([facility]) [address] [facility], [place], [address], 04/12/2023 07:14:41 04/11/2004/12/2023 CBC WITH DIFFE RENTI AL/PL ATELE T hemoglobin 11.6 g/dL 11.1-1 5.9 Not Available [facility] ([facility]) [address] [facility], [place], [address], 04/12/2023 07:14:41 04/11/2004/12/2023 CBC WITH DIFFE RENTI AL/PL ATELE T hematocrit 35.6 % 34.0-4 6.6 Not Available [facility] ([facility]) [address] [place], [address], 04/12/2023 07:14:41 04/11/2004/12/2023 CBC WITH DIFFE RENTI AL/PL ATELE T MCV 96 fL 79-97 Not Available [facility] ([facility]) [address] [place], [address], 04/12/2023 07:14:41 04/11/2004/12/2023 CBC WITH DIFFE RENTI AL/PL ATELE T MCH 31.2 pg 26.6-3 3.0 Not Available [facility] ([facility]) [address] [place], [address], 04/12/2023 07:14:41 04/11/2004/12/2023 CBC WITH DIFFE RENTI AL/PL ATELE T MCHC 32.6 g/dL 31.5-3 5.7 Not Available [facility] ([facility]) [address] [facility], [place], [address], 04/12/2023 07:14:41 04/11/2004/12/2023 CBC WITH DIFFE RENTI AL/PL ATELE T RDW 12.0 % 11.7-1 5.4 Not Available [facility] ([facility]) [address] [facility], [place], [address], 04/12/2023 07:14:41 04/11/2004/12/2023 CBC WITH DIFFE RENTI AL/PL ATELE T platelets 238 x10e3 /uL 150-45 0 Not Available [facility] ([facility]) [address] [facility], [place], [address], 04/12/2023 07:14:41 04/11/2004/12/2023 CBC WITH DIFFE RENTI AL/PL ATELE T neutrophils 57 % notest ab. Not Available [facility] ([facility]) [address] [facility], [place], [address], 04/12/2023 07:14:41 04/11/2004/12/2023 CBC WITH DIFFE RENTI AL/PL ATELE T lymphs 28 % notest ab. Not Available [facility] ([facility]) [address] [facility], [place], [address], 04/12/2023 07:14:41 04/11/2004/12/2023 CBC WITH DIFFE RENTI AL/PL ATELE T monocytes 10 % notest ab. Not Available [facility] ([facility]) [address] [facility], [place], [address], 04/12/2023 07:14:41 04/11/2004/12/2023 CBC WITH DIFFE RENTI AL/PL ATELE T eos 3 % notest ab. Not Available [facility]) [address] [facility], [place], [address], 04/12/2023 07:14:41 04/11/2004/12/2023 CBC WITH DIFFE RENTI AL/PL ATELE T basos 1 % notest ab. Not Available [facility] ([facility]) [address] [facility], [place], [address], 04/12/2023 07:14:41 04/11/2004/12/2023 CBC WITH DIFFE RENTI AL/PL ATELE T neutrophils (absolute) 2.4 x10e3 /uL 1.4-7. 0 Not Available [facility] ([facility]) [address] [place], [address], 04/12/2023 07:14:41 04/11/2004/12/2023 CBC WITH DIFFE RENTI AL/PL ATELE T lymphs (absolute) 1.2 x10e3 /uL 0.7-3. 1 Not Available [facility] ([facility]) [address] [place], [address], 04/12/2023 07:14:41 04/11/2004/12/2023 CBC WITH DIFFE RENTI AL/PL ATELE T monocytes(ab solute) 0.4 x10e3 /uL 0.1-0. 9 Not Available [facility] ([facility]) [address] [place], [address], 04/12/2023 07:14:41 04/11/20 23 04/12/2023 CBC WITH DIFFE RENTI AL/PL ATELE T eos (absolute) 0.1 x10e3 /uL 0.0-0. 4 Not Available [facility] ([facility]) [address] [place], [address], 04/12/2023 07:14:41 04/11/2004/12/2023 CBC WITH DIFFE RENTI AL/PL ATELE T baso (absolute) 0.0 x10e3 /uL 0.0-0. 2 Not Available [facility] ([facility]) [address] [facility], [place], [address], 04/12/2023 07:14:41 04/11/2004/12/2023 CBC WITH DIFFE RENTI AL/PL ATELE T immature granulocytes 1 % notest ab. Not Available [facility] ([facility]) [address] [facility], [place], [address], 04/12/2023 07:14:41 04/11/2004/12/2023 CBC WITH DIFFE RENTI AL/PL ATELE T immature grans (abs) 0.0 x10e3 /uL 0.0-0. 1 Not Available [facility] ([facility]) [address] [facility], [place], [address], 04/12/2023 07:14:41 04/11/2004/12/2023 B-TYP E NATRI URETI C PEPTI DE B-type natriuretic peptide 100.9 pg/mL 0.0-10 0.0 above high normal Sieme ns [facility] metho dolog y Not Available [facility] ([facility]) [address] [facility], [place], [address], 04/12/2023 11:14:10 01/16/20 24 01/16/2024 COLOG UARD cologuard result reportable Negati ve negati ve normal NEGAT GENNY TEST RESUL T. A negat genny Colog uard resul t indic ates a low likel ihood that a color ectal cance r (CRC) or advan paras adeno ma (jada omato us polyp s with more advan paras pre-m align ant featu res) is prese nt. The chanc e that a perso n with a negat genny Colog uard test has a color ectal cance r is less than 1 in 1500 (nega tive predi ctive value >99.9 %) or has an advan paras adeno ma is less than 5.3% (nega tive predi ctive value 94.7% ). These data are based on a prosp ectiv e cross -sect ional study of 10,00 0 indiv idual s at [facility] risk for color ectal cance r who were scree favina with both Colog uard and colon oscop y. (Impe riccardo Whipple et al, N Engl J Med 2014; 370(1 4):12 86-12 97) The tatyana l value (refe rence range ) for this assay is negat genny. COLOG UARD RE-SC KARELY PHELPS RECOM MENDA TION: Perio dic color ectal cance r scree marce is an impor tant part of preve ntive healt hcare for asymp tomat ic indiv idual s at [facility] risk for color ectal cance r. Follo wing a negat genny Colog uard resul t, the Ameri can Cance r Socie ty and U.S. Multi -Soci ety Task Force scree marce guide lines recom mend a Colog uard re-sc [place]arely [place] of 3 years . Refer ences : Ameri can Cance r Socie ty Guide line for Color ectal Cance r Scree marce: https ://solomon w.can cer.o rg/ca ncer/ colon -rect al-ca ncer/ detec tion- diagn osis- stagi ng/ac s-rec ommen datio ns.ht ml.; Stanford GORE, Suri cardenas CR, Alexandra lopez JK, Color ectal Cance r Scree marce: Recom menda tions for Physi cians and Patie nts from the U.S. Multi -Soci ety Task Force on Color ectal Cance r Scree marce , Eddie odonnellntmaria luz rolog y 2017; 112:1 016-1 030. TEST DESCR IPTIO N: [place] site algor ithmi c renee sis of stool DNA-b sam pizano with hemog lobin immun oassa y. Quant itati ve value s of indiv idual bioma rkers are not repor table and are not assoc iated with indiv idual bioma rker resul t refer ence range s. Colog uard is inten ded for color ectal cance r scree marce of adult s of eithe r sex, 45 years or older , who are at [facility] for color ectal cance r (CRC) . Colog uard has been appro fernando for use by the U.S. FDA. The perfo rmanc e of Colog uard was estab lishe d in a cross secti onal study of [facility] adult s aged 50-84 . Colog uard perfo rmanc e in patie nts ages 45 to 49 years was estim ated by edna-jose carlos salazar renee sis of near- age group s. Colon oscop ies perfo rmed for a posit genny resul t may find as the most clini tony signi ficasher t lesio n: color ectal cance r [4.0% ], advan paras adeno ma (incl uding sessi le julia nga polyp s great er than or equal to 1cm diame ter) [20%] or non- advan paras adeno ma [31%] ; or no color ectal neopl vivi [45%] . These estim ates are deriv ed from a prosp ectiv e cross -sect ional scree marce study of 10,00 0 indiv idual s at [facility] risk for color ectal cance r who were scree favian with both Colog uard and colon oscop y. (Dg Beauchamp al, N Engl J Med 2014; 370(1 4):12 86-12 97.) Colog uard may produ ce a false negat genny or false posit genny resul t (no color ectal cance r or preca ncero us polyp prese nt at colon oscop y follo w up). A negat genny Colog uard test resul t does not guara ntee the absen ce of CRC or advan paras adeno ma (pre- cance r). The curre nt Colog uard scree marce [place] is every 3 years . (Amer ican Cance r Socie ty and U.S. Multi -Soci ety Task Force ). Colog uard perfo rmanc e data in a 10,00 0 patie nt pivot al study using colon oscop y as the refer ence metho d can be acces sed at the follo wing locat ion: www.e xactl abs.c om/re sults . Addit ional descr iptio n of the Colog uard test proce ss, warni ngs and preca ution s can be found at www.c ologu anival.c om. Not Available [facility] (Cologuard Orders Only) [address], [place], [address], 01/23/2024 17:58:05 05/09/20 23 05/09/2023 US, echoc ardio gram, trans thora cic, compl ete, w/ color flow No observ ation record ed. [address] [place], [address], 05/12/2023 15:57:42 05/09/20 23 05/09/2023 elect abraham ramirez am, routi ne ECG, 12 leads min No observ ation record ed. [facility] (Cardiology) [address] [facility] [facility] [place], [address], 05/12/2023 15:57:42 03/04/20 24 03/02/2024 MRI, lumba r spine , w/o contr ast No observ ation record ed. [facility] (Radiology) [address] [facility], [place], [address], 03/07/2024 10:02:32 Result Notes None recorded. Problems Name Problem SNOMED Code Status Onset Date Resolution Date Notes Provider Name and Address Organization Details Recorded Time Essential hypertensio n 00083359 Active 2018 Enid Rodriguez APN, 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 Attn: Jaimiein g,[address], [place], [address], [facility] 9 10:30:31 Gastroesoph ageal reflux disease without esophagitis 735033577 Active 2018 Enid Rodriguez APN, FNP-C Attn: David branch,[address] [facility], [place], [address], [place] - [facility] 9 10:30:32 Chronic low back pain 442891057 Active 2018 Enid Rodriguez APN, FNP-C Attn: Jaimiejared branch,[address] [facility], [place], [address], [place] [facility] 9 10:30:35 Fibromyalgi a 290346923 Active 2018 Enid Rodriguez APN, FNP-C Attn: David branch,[address] [facility], [place], [address], [place] - [facility] 9 10:30:38 Pain of right ankle joint 2244351059625 9106 Active 2018 Enid Rodriguez APN, FNP-C Attn: Jaimiejared branch,[address] [facility], [place], [address], [place] [facility] 9 10:30:40 Obesity 617975288 Active 2018 Enid Rodriguez APN, FNP-C Attn: David branch,[address] [facility], [place], [address], [place] - [facility] 9 10:30:41 Elbow joint pain 882834786 Active Hari Barbosa MD Attn: Jaimiejared branch,[address] [facility], [place], [address], [place] [facility] 4 23:50:58 Acid reflux 516149811 Active 2016 Elisa Fermin MA null, [place] - [facility] 7 14:15:03 Hypertensiv e disorder 12127834 Active 2016 Elisa Fermin [place] null, [place] - [facility] 7 14:16:18 Spinal stenosis 33604602 Active 2016 Elisa Fermin MA null, [place] - [facility] 14:29:22 Problem Notes None recorded. Procedures Surgical History Date Name Laterality Status Provider Name and Address Organization Details Recorded Time 08/09/19 20 Back Surgery completed Jaki Carson MA [facility] 05/23/2022 12:05:21 06/26/18 96 Total hysterectomy completed Ashanti Villatoro MA [facility] 01/18/2024 14:21:08 Hernia Repair completed Elisa Fermin MA [facility] 04/10/2017 14:16:38 Caesarean Section completed Elisa Fermin MA [facility] 04/10/2017 14:16:45 Cholecystectomy completed Elisa Fermin MA [facility] 04/10/2017 14:17:10 release of contracture of elbow joint completed Jaki Carson MA [facility] 05/23/2022 12:04:11 Imaging Results Imaging Date Name Status LastModified by Organiz ation Details LastModified Time 05/09/2023 US, echocardiogra m, transthoracic , complete, w/ color flow completed [address] [place], [address], 05/12/2023 15:57:42 05/09/2023 electrocardio gram, routine ECG, 12 leads min completed [facility] (Cardiology) [address] [place] [address] [place], [address], 05/12/2023 15:57:42 03/02/2024 MRI, lumbar spine, w/o contrast completed [facility]Radiology) [address] [facility] [place], [address], 03/07/2024 10:02:32 Procedure Notes None recorded. Medical Equipment None Reported. Allergies Allergen ID Allergen Name Allergen Category Reaction Reaction Severity Criticality Documentation Date Start Date Code Code System Note Provider Name and Address Organization Details Recorded Time 693561 lisinopri l medicatio n cough Not available Not available 01/04/2019 97629 RxNorm Not Available Not Available Not Available 932768 Product containin g beta adrenergi c receptor antagonis t (product) medicatio n other Not available unabletoasse ss 05/23/2022 49448 009 SNOMED Bring s down heart rate to much Not Available Not Available Not Available 84150 codeine medicatio n Not available Not available Not available 04/10/2017 2670 RxNorm said she only had a react ion in her 20's and has been on it since with out any probl ems Not Available Not Available Not Available 55731 Non-stero idal anti-infl ammatory agent (product) medicatio n Not available Not available Not available 04/10/2017 07639 005 SNOMED Not Available Not Available Not Available Medications Name Sig Start Date Stop Date Status Note LastModified by Organization Details LastModified Time losartan 50 mg tablet TAKE 1 TABLET BY MOUTH EVERY DAY 05/23 completed Not Available Not Available Not Available cyclobenz aprine 10 mg tablet Take 1 tablet 3 times a day by oral route for 30 days. 04/11 completed Not Available Not Available Not Available methocarb lolis 500 mg tablet 05/23 completed Not Available Not Available Not Available promethaz ine-DM 6.25 mg-15 mg/5 mL oral syrup TAKE 5 ML BY MOUTH EVERY 4 TO 6 HOURS NEEDED FOR COUGH 05/23 completed Not Available Not Available Not Available prednison e 10 mg tablet 05/23 completed Not Available Not Available Not Available azithromy alisia 250 mg tablet 05/23 completed Not Available Not Available Not Available tizanidin e 4 mg tablet TAKE 1 TABLET BY MOUTH EVERY 6 HOURS NEEDED FOR PAIN active Not Available Not Available No t Available benzonata te 200 mg capsule TAKE 1 CAPSULE BY MOUTH THREE TIMES DAILY NEEDED FOR COUGH active Not Available Not Available No t Available hydrocodo ne 5 mg-acetam inophen 325 mg tablet TAKE 1 TABLET BY MOUTH EVERY 6 HOURS NEEDED FOR MODERATE OR MORE SEVERE PAIN 04/22 completed Not Available Not Available Not Available ondansetr on HCl 8 mg tablet TAKE 1 TABLET BY MOUTH TWICE DAILY NEEDED active Not Available Not Available No t Available lisinopri l 20 mg tablet Take 1 tablet every day by oral route. 01/04 completed Not Available Not Available Not Available ondansetr on HCl 4 mg tablet 04/11 completed Not Available Not Available Not Available potassium chloride ER 10 mEq tablet,ex tended release TAKE 1 TABLET BY MOUTH EVERY DAY active Not Available Not Available No t Available acetamino phen 300 mg-codein e 30 mg tablet Take 1 tablet every 6 hours by oral route as needed. 05/23 completed Not Available Not Available Not Available hydrocodo ne 10 mg-acetam inophen 325 mg tablet 04/11 completed Not Available Not Available Not Available tramadol 50 mg tablet 02/04 completed stopped taking due to headache Not Available Not Available Not Available amitripty line 25 mg tablet 05/23 completed Not Available Not Available Not Available benzonata te 100 mg capsule 09/14 completed Not Available Not Available Not Available hydrocodo ne 7.5 mg-acetam inophen 325 mg tablet 05/23 completed Not Available Not Available Not Available pantopraz ole 40 mg tablet,de layed release TAKE 1 TABLET BY MOUTH EVERY DAY Patien t needs to schedule appointm ent 2024 active Not Available Not Available Not Avai lable dexametha sone 4 mg tablet TAKE 1 TABLET BY MOUTH TWICE DAILY WITH MEALS FOR 7 DAYS 04/11 completed Not Available Not Available Not Available prednison e 50 mg tablet TAKE 1 TABLET BY MOUTH DAILY 04/11 completed Not Available Not Available Not Available lidocaine 5 % topical patch UNWRAP AND APPLY 1 PATCH TO DRY INTACT SKIN DAILY. REMOVE AND DISCARD PATCH WITHIN 12 HOURS OR DIRECTED BY DOCTOR 04/11 completed Not Available Not Available Not Available losartan 25 mg tablet TAKE 1 TABLET BY MOUTH DAILY 2024 active Not Available Not Available Not Avai lable gabapenti n 300 mg capsule 05/23 completed Not Available Not Available Not Available omeprazol e 20 mg capsule,d elayed release TAKE 1 CAPSULE BY MOUTH EVERY DAY 01/14 completed OTC Not Available Not Available Not Available furosemid e 20 mg tablet TAKE 1 TABLET BY MOUTH EVERY DAY active Not Available Not Available No t Available methylpre dnisolone 4 mg tablets in a dose pack TAKE BY MOUTH DIRECTED ON INSIDE OF PACKAGE 04/22 completed Not Available Not Available Not Available albuterol sulfate HFA 90 mcg/actua tion aerosol inhaler INHALE 2 PUFFS FOUR TIMES DAILY NEEDED FOR SOHRTNES S OF BREATH OR WHEEZING active Not Available Not Available No t Available duloxetin e 30 mg capsule,d elayed release TAKE 1 CAPSULE BY MOUTH EVERY DAY IN THE EVENING active Not Available Not Available No t Available duloxetin e 60 mg capsule,d elayed release 05/23 completed Not Available Not Available Not Available pregabali n 75 mg capsule TAKE 1 CAPSULE BY MOUTH TWICE DAILY active Not Available Not Available No t Available pregabali n 150 mg capsule TAKE 1 CAPSULE BY MOUTH TWICE DAILY active Not Available Not Available No t Available Percocet 05/10 completed [facility] Not Available Not Available Not Available Valium 05/10 completed [facility] Not Available Not Available Not Available naloxone 4 mg/actuat ion nasal spray 04/11 completed Not Available Not Available Not Available Vitals Date Recorded Body height Body mass index (BMI) Body weight Oxygen saturation Oxygen saturation in Arterial blood by Pulse oximetry Heart rate Respiratory rate Body temperature Systolic blood pressure Diastolic blood pressure Provider Name and Address Organization Details Last Updated DateTime 2 168.91 cm 38.2 kg/m2 284130. 57 g 98 % 98 % 122 /min 16 /min 97.5 [degF] 146 mm[Hg] 96 mm[Hg] Jaki Carson MA [place] - [facility] 2 11:55:11 Date Recorded Body height Body mass index (BMI) Body weight Oxygen saturation Oxygen saturation in Arterial blood by Pulse oximetry Heart rate Respiratory rate Body temperature Systolic blood pressure Diastolic blood pressure Provider Name and Address Organization Details Last Updated DateTime 3 168.91 cm 41.2 kg/m2 373322. 17 g 99 % 99 % 61 /min 16 /min 96.9 [degF] 160 mm[Hg] 88 mm[Hg] Jaki Carson MA [place] - [facility] 3 12:47:39 Date Recorded Body height Body mass index (BMI) Body weight Oxygen saturation Oxygen saturation in Arterial blood by Pulse oximetry Heart rate Respiratory rate Body temperature Systolic blood pressure Diastolic blood pressure Provider Name and Address Organization Details Last Updated DateTime 3 168.91 cm 41.8 kg/m2 237941. 39 g 95 % 95 % 72 /min 16 /min 96.9 [degF] 180 mm[Hg] 86 mm[Hg] Jaki Carson MA [facility] 3 11:23:19 Date Recorded Body height Body mass index (BMI) Body weight Oxygen saturation Oxygen saturation in Arterial blood by Pulse oximetry Heart rate Respiratory rate Body temperature Systolic blood pressure Diastolic blood pressure Provider Name and Address Organization Details Last Updated DateTime 4 168.91 cm 36.5 kg/m2 188094. 4 g 98 % 98 % 62 /min 16 /min 97.1 [degF] 123 mm[Hg] 85 mm[Hg] Jaki Carson MA [facility] 4 14:13:11 Date Recorded Body height Body mass index (BMI) Body weight Oxygen saturation Oxygen saturation in Arterial blood by Pulse oximetry Heart rate Respiratory rate Body temperature Systolic blood pressure Diastolic blood pressure Provider Name and Address Organization Details Last Updated DateTime 4 168.91 cm 38.4 kg/m2 386849. 16 g 97 % 97 % 61 /min 16 /min 97.1 [degF] 143 mm[Hg] 86 mm[Hg] Ashanti reyes MA [facility] 4 14:15:31 Social History Question Answer Notes LastModified by Organizat ion Details LastModified Time Tobacco Smoking Status Current Every Day Smoker Elisa Fermin MA [facility], [facility] 04/10/2017 14:19:40 Do You Have An Advance Directive? No Information not available 05/23/2022 What Is Your Level Of Alcohol Consumption? None Information not available 05/23/2022 Are You Blind Or Do You Have Difficulty Seeing? Yes Glasses Information not available 05/23/2022 What Is Your Level Of Caffeine Consumption? None Information not available 04/11/2023 In The 14 Days Before Symptom Onset, Have You Had Close Contact With A Laboratory-confir med COVID-19 While That Case Was Ill? No Information not available 05/23/2022 In The 14 Days Before Symptom Onset, Have You Had Close Contact With A Person Who Is Under Investigation For COVID-19 While That Person Was Ill? No Information not available 05/23/2022 Have You Been To An Area Known To Be High Risk For COVID-19? No Information not available 05/23/2022 Are You Currently Employed? No Information not available 05/23/2022 Are You Deaf Or Do You Have Serious Difficulty Hearing? No Information not available 05/23/2022 What Type Of Diet Are You Following? REGULAR [email or web address] Information not available 01/04/2019 What Is Your Occupation? Unemployed [email or web address] Information not available 01/04/2019 Are There Any Guns Present In Your Home? No Information not available 05/23/2022 Marital Status [email or web address] Informatio n not available 01/04/2019 What Was The Date Of Your Most Recent Tobacco Screening? 10/19/2023 Information not available 10/19/2023 How Many Children Do You Have? 3 Information not available 05/23/2022 What Is Your Current Pack Years? [email or web address] ars Information not available 05/23/2022 Do You Use Protection During Sex? No Information not available 05/23/2022 What Is Your Relationship Status? Information not available 05/23/2022 Do You Use Your Seat Belt Or Car Seat Routinely? Yes Information not available 05/23/2022 Are You Sexually Active? Yes Information not available 05/23/2022 Do You Have Smoke And Carbon Monoxide Detectors In Your Home? Yes Information not available 05/23/2022 At What Age Did You Start Smoking Tobacco? 16 Information not available 05/23/2022 Are You Passively Exposed To Smoke? Yes Information no t available 05/23/2022 How Much Tobacco Do You Smoke? 0.25 PPD Information not available 04/11/2023 General Stress Level Medium Low-med [email or web address] Information not available 01/04/2019 Do You Feel Stressed (tense, Restless, Nervous, Or Anxious, Or Unable To Sleep At Night)? [id number] Information not available 05/23/2022 Do You Use Any Illicit Or Recreational Drugs? No Information not available 04/11/2023 Do You Use Sunscreen Routinely? No Information not available 05/23/2022 Has Tobacco Cessation Counseling Been Provided? Yes Information not available 05/23/2022 On What Date Was Tobacco Cessation Counseling Provided? 10/19/2023 Information not available 10/19/2023 How Many Years Have You Smoked Tobacco? 41 Information not available 05/23/2022 Do You Or Have You Ever Used Any Other Forms Of Tobacco Or Nicotine? No Information not available 05/23/2022 Sex: Female Functional Status Question Answer Note LastModified by Organization D etails LastModified Time Are you able to care for yourself? Yes Information n ot available 05/23/2022 What is your exercise level? None [email or web address] Information not available 01/04/2019 Mental Status None recorded. Family History Relationship Description Onset Age of this Age Resolved Age Notes LastModified by Organization Details LastModified Time Father Cerebrovascu lar accident rreiter Not available 14:17:38 Father Hypertensive disorder rreiter Not available 2016 14:19:00 Mother Depressive disorder rreiter Not available 2016 14:17:49 Mother Disorder of thyroid gland rreiter Not available 2016 14:18:01 Mother Heart disease rreiter Not available 2016 14:18:32 Mother Hypertensive disorder rreiter Not available 2016 14:19:06 Brother Hypertensive disorder rreiter Not available 2016 14:18:53 Brother Hypercholest erolemia rreiter Not available 2016 14:19:29 Brother Malignant tumor of lung [email or web address] Not available 2018 09:58:13 Brother Depressive disorder erobbinsma Not available 05/23 12:01:21 Brother Alcohol abuse erobbinsma Not available 04/11 11:20:43 Brother Transient cerebral ischemia erobbinsma Not available 10/18 14:09:58 Sister Hypertensive disorder rreiter Not available 2016 14:19:16 Notes:No new reported 3, 04/11/23, 10/19/23 Medical History Condition Response Coronary Artery Disease N Other N High Blood Pressure Y Atrial Fibrillation N Kidney or Bladder Problems N Thyroid Problems N GI Problems N Depression N COPD N Blood Clots N Skin Problems N Anemia N Heart Attack (HI) N Anxiety Disorder N Diabetes N Muscle, Joint, or Bone Problems N Seizures/Epilepsy N Have you had a colonoscopy in the last 1 0 years? N Acid Reflux (GERD) Y Cancer N Stroke N Asthma N Allergies N High Cholesterol N Hepatitis N Liver Disease N Headaches N Heart Failure N Osteoporosis N Gynecological History Statement/Question Response Current Control Method Hysterectom y Date of LMP LMP Definite Obstetrics History GPAL:G 0 P 0 0 0 0 Immunizations Vaccine Type Date Status Note Provider Nam e and Address Organization Details Recorded Time COVID-19, mRNA, LNP-S, PF, 100 mcg/0.5mL dose or 50 mcg/0.25mL dose 1 completed OBED Gonzalez, [place] - [facility] 05/23/2022 12:00:31 COVID-19, mRNA, LNP-S, PF, 100 mcg/0.5mL dose or 50 mcg/0.25mL dose 1 completed OBED Gonzalez, [place] - [facility] 05/23/2022 12:00:52 Influenza, split virus, quadrivalent, preservative 7 completed Not Available [facility] 07/13/2019 02:42:30 Influenza, split virus, quadrivalent, preservative 8 completed Not Available [facility] 07/13/2019 02:47:53 Influenza, split virus, quadrivalent, PF 2 completed Hari Barbosa MD Attn: [address] [place], [address], [place] - [facility] 05/24/2022 21:34:15 Influenza, split virus, quadrivalent, PF 3 completed Hari Barbosa MD Attn: [address] [place], [address], [place] [facility] 04/15/2023 08:41:27 Past Encounters Encounter ID Performer Location Encounter Start Date Encounter Closed Date Diagnosis/Indication Diagnosis SNOMED-CT Code Diagnosis ICD10 Code Diagnosis Note [id number] RUPAL HENNESSY NP [place] [address] 04/10/2017 14:01:05 04/11/2017 17:48:55 Lumbago with sciatica 577976360 M54.41 Tobacco de pendence syndrome 72226663 F17.334 [id number] RUPAL HENNESSY NP [place] [address] 05/10/2017 10:17:10 05/10/2017 13:02:34 Essential hypertension 84229216 I10 Gastroesop hageal reflux disease without esophagitis 550061609 K21.9 Chronic low back pain 27 7608804 M54.5 Administra tion of influenza vaccine 49126291 Z23 [id number] RUPAL HENNESSY NP [place] [address] 08/25/2017 14:14:43 08/28/2017 15:04:58 Pain in left knee 8793527560 14934 M25.601 [id number] Randi Holly [place] [address] 04/05/2018 19:22:19 04/09/2018 14:16:42 Administration of influenza vaccine 35088201 Z23 [id number] Enid Rodriguez APN, [employer]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 [place] [address] 01/04/2019 09:44:25 01/07/2019 12:50:14 Essential hypertension 91562845 I10 bp elevated, hx of htn, not on meds in a long time, lisinopril cause cough, did well on losartan, will restart losartan Gastroesop hageal reflux disease without esophagitis 616946278 K21.9 taking otc, states nothing works, Chronic low back pain 27 8254645 M54.5 out of pain meddwp new referral and may only be able to provide a small amount of tylenol with codeine-ne eds to make it last Endocrine/ metabolic screening 388069130 Z13.228 Fibromyalgia 642228465 M 79.[address] Mulligan, needs new referral for pain mgmt, insurance no longer covering her cymbalta Pain of ri ght ankle joint 2439466649 8999339 M25.571 pt out of her pain med from pain mgmt, ankle hx of fracture, started hurting more since summer, dwp needing new xray Obesity 310957927 E66.9 advised low fat, low cholestero l, low carb diet, regular exercise and weight reduction. Screening for malignant neoplasm of colon 319115256 Z12.11 Screening for malignant neoplasm of breast 376067321 Z12.31 Tobacco user 228579582 Z 72.0 Smoking cessation encouraged . [id number] Enid Rodriguez APN, [employer] Y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 [facility] [address] [place] [address] 02/04/2019 09:55:46 02/05/2019 14:32:33 Essential hypertension 43479735 I10 hx of htn, lisinopril caused cough, doing well on losartan, cont losartan Gastroesop hageal reflux disease without esophagitis [id number] K21.9 taking otc, states nothing works, started ppi and improving Fibromyalgia [id number] M 79.[address] Mulligan, went to pain mgmt, insurance no longer covering her cymbalta Chronic low back pain 27 [id number] M54.5 went to pain mgmt in [facility]. States they do nothing for her, dwp to call office for appt or to call new provider, cannot take the medication they gave her, was causing severe headaches, pt requests small rx of tylenol with codeine, will send. Tobacco user [id number] Z 72.0 Smoking cessation encouraged . [id number] Hari Barbosa MD [place] 14 IM 4 [facility] Dr Britt [address] [place] [id number] 05/23/2022 11:41:51 05/25/2022 13:02:54 Obesity 299425576 E66.9 Smoker 43857408 F17.200 Influenza immunization advised 350500566 Z71.85 Essential hypertension 80420943 I10 Chronic low back pain 27 7620464 M54.50 Screening for malignant neoplasm of colon 188288697 Z12.11 pt is at average risk Screening mammography 24 414512 Z12.31 Gastroesop hageal reflux disease 747526080 K21.9 Acquired t psych np finger of right middle finger [id number] 79572 M65.184 [id number] MD Viry [place] 14 IM [address] [facility] [place] [address] 09/14/2022 12:36:57 09/20/2022 12:51:44 Morbid obesity 427296698 E66.01 Smoker 94616779 F17.200 Pre-surger y evaluation 035469754 Z01.780 [id number] MD Viry [place] 14 IM [address] [facility] [place] [address] 04/11/2023 10:48:44 04/19/2023 13:23:10 Influenza immunization advised 623323868 Z71.85 Bilateral hip joint pain [id number] 3574087 M25.551 Edema of l ower extremity 005740532 R60.0 [id number] MD Viry [place] 14 IM 4 [facility] [place] [address] 10/19/2023 14:00:54 10/25/2023 10:05:06 Screening for malignant neoplasm of cervix declined 591780194 Z53.20 Pt. had a hysterecto my Gastroesop hageal reflux disease 005695225 K21.9 Screening for malignant neoplasm of colon 786888271 Z12.11 pt is at average risk Screening mammography 24 402523 Z12.31 [id number] MD Viry [place] 14 IM 4 [facility] [place] [address] 01/18/2024 14:04:47 01/26/2024 15:10:51 Obesity 450169232 E66.8 Gastroesop hageal reflux disease 954820817 K21.9 Chronic back pain 467210 002 G89.29 one back surgery on 08-09-2019 Double incontinence 7845 9008 N39.498 urinary and fecal incontinen ce for about one month now Health Concerns Section Related Observation LastModified by Organization Detai ls LastModified Time None Recorded Concern Status LastModified by Organization Details LastModified Time None Recorded Advance Directives Directive N: Payers Encounter Date Sequence Insurance Name Policy Number Policy Moraes Covered Member ID Moraes Member ID Guarantor Name 05/23/2022 1 [facility] (MEDICAID HMO) [id number] Terra Ibarra [id number] Terra Ibarra 05/23/2022 1 [place] [facility] Terra Lakewood [id number] Terra Lakewood 09/14/2022 1 [facility] (MEDICAID HMO) [id number] Terra Stacey [id number] Terra Stacey 04/11/2023 1 [facility] (MEDICAID HMO) [id number] Terra [place]wood [id number] Terra Stacey 10/19/2023 1 [facility] (MEDICAID HMO) [id number] Terra Stacey [id number] Terra Stacey 01/18/2024 1 [facility] (MEDICAID HMO) [id number] Terra Stacey [id number] Terra [place] Notes Date Note Type Note Provider Name and Address Organization Details Recorded Time 05/23/2022 text/html First visit with this PCP. Hari Barbosa MD Attn: Accounting, [address] [place], [address], [place] [facility] 05/24/2022 21:36:45 09/14/2022 text/html Pt presents for medical clearance for trigger finger release. Hrai Barbosa MD Attn: Accounting, [address] [place], [address], [facility] 09/15/2022 14:23:18 04/11/2023 text/html Per intake note, new onset LE edema. Hari Barbosa MD Attn: Accounting, [address] [place], [address], [place] [facility] 04/15/2023 08:44:27 10/19/2023 text/html As per intake note, pt is having diffuse abdominal discomfort and has lost wt over the last several months. Hari Barbosa MD Attn: Accounting, [address] [place], [address], [place] [facility] 10/24/2023 07:56:58 01/18/2024 text/html Pt describes new onset double incontinence for the last month with increasing pain in lumbar area, no significant radiation to LEs. Hari Barbosa MD Attn: Accounting,[address], [place], [address], [facility] - [facility] 01/24/2024 07:19:56 OBGyn Episode No OBEpisode recorded.
--- OUTSIDE RECORDS SUMMARY | 2024-08-17 11:16 | XMS_ITS | Clinical Summary ---
Author Organization [facility] Address [address] [place] [address] Care Team Providers Care Torpedoman'S Mate Name Role Phone Janie Hunter RN Unavailable UnavailLeslie Mora RN Unavailable UnavailJessy Lagunas Unavailable Unavailable Gaby Stacy RN Unavailable Un available Hari Alcantara MD Primary Care Provider [phone] Allergies Active Allergy Reactions Criticality Noted Date Comments Beta-Blockers (Beta-Adrenergic Blocking Agts) Other (See comments) Low 08/31/2022 Lowers heart rate Codeine Other (See comments) Low Chest pain Latex Other (See comments) Medium Skin irritation Lisinopril Cough Low 07/10/2019 Nsaids (Non-Steroidal Anti-Inflammatory Drug) Nausea only Low 03/03/2017 Tramadol Headache Medium 02/27/2019 Medications losartan (COZAAR) 50 mg tablet Take 1 tablet (50 mg total) by mouth daily 6 Active naloxone (NARCAN) 4 mg/actuation spray,non-aeros olIndications:O piate-Induced Respiratory Depression,Opio id Toxicity Administer 1 spray into affected nostril(s) as needed for opioid reversal or respiratory depression 1 each 0 Active Additional Information Patient not taking.Reported on 05/11/2023 albuterol HFA (PROVENTIL HFA,VENTOLIN HFA,PROAIR HFA) 90 mcg/actuation inhaler Inhale 2 puffs every 4 (four) hours as needed for wheezing 1 each 2 Active amitriptyline (ELAVIL) 25 mg tablet Amitriptyline HCl 25 MG Oral Tablet QTY: 30 tablet Days: 30 Refills: 2 Written: 05/27/19 Patient Instructions: TAKE 1 TABLET BY MOUTH AT BEDTIME 9 Active lansoprazole (PREVACID) 30 mg capsule Take 1 capsule (30 mg total) by mouth daily Active DULoxetine DR (CYMBALTA) 30 mg capsule Take 1 capsule (30 mg total) by mouth nightly Has been out of meds for a week 30 capsule 1 3 Active ascorbic acid (VITAMIN C) 500 mg tablet,chewable Take 1 tablet/chew tab (500 mg total) by mouth 2 (two) times a day 60 tablet/chew tab 3 Active cholecalciferol (VITAMIN D-3) 2000 unit capsule Take 1 capsule (2,000 Units total) by mouth daily 30 capsule 3 Active ondansetron (ZOFRAN) 4 mg tabletIndicatio ns:Prevention of Post-Operative Nausea and Vomiting Take 1 tablet (4 mg total) by mouth every 6 (six) hours as needed for nausea or vomiting 20 tablet 1 3 Active Additional Information Patient not taking.Reported on 10/03/2022 pregabalin (LYRICA) 75 mg capsule Take 1 capsule (75 mg total) by mouth 2 (two) times a day 60 capsule 2 3 Active tiZANidine (ZANAFLEX) 4 mg tabletIndicatio ns:Chest wall muscle strain, initial encounter,Strai n of thoracic back region Take 1 tablet (4 mg total) by mouth every 6 (six) hours as needed (Take as directed to relax muscles) Collaborating physician Josafat Alvarenga MD 20 tablet 3 Active Additional Information Patient not taking.Reported on 07/04/2023 lidocaine (LIDODERM) 5 % Place 1 patch on the skin daily Remove & discard patch within 12 hours or as directed by . 30 patch 3 Active methylPREDNISol one (Medrol, Marcello,) 4 mg Dosepack Take as directed on package 1 packet 3 Active Additional Information Patient not taking.Reported on 07/04/2023 furosemide (LASIX) 20 mg tablet Take 1 tablet (20 mg total) by mouth daily Active potassium chloride ER 10 mEq CR tablet Take 1 tablet/capsule (10 mEq total) by mouth daily Active Active Problems Problem Noted Date Diagnosed Date Heart failure, unspecified (CMS/HCC) 07/14/2023 Localized edema 07/14/2023 Chest wall muscle strain, initial encounter 11/24 Strain of thoracic back region 12/12/2022 Trigger middle finger of right hand 09/02/2022 Overview (09/02/2022): Added automatically from request for surgery [id number] Trochanteric bursitis of left hip 06/01/2022 Left hip pain 06/01/2022 Lumbar post-laminectomy syndrome 01/27/2021 DDD (degenerative disc disease), lumbar 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 12/24 Sacroiliitis ([facility]) - Right 12/03/2019 Insomnia secondary to chronic pain 12/03/2019 s/p right L1-2 microdiscectomy 08/09/2019 Elbow joint pain 07/10/2019 Lumbar radiculopathy 07/10/2019 Lumbago 02/05/2019 Arthralgia of right ankle 01/04/2019 Obesity 01/04/2019 Chronic bilateral low back pain without sciatica 09/11/2018 Fibromyalgia 06/13/2018 Hip sprain, left, initial encounter 07/27/2017 Fibromyalgia 07/27/2017 Acid reflux 04/10/2017 Essential hypertension 04/10/2017 Spinal stenosis 04/10/2017 Degenerative lumbar spinal stenosis 08/05/2015 Common bile duct calculus 08/05/2013 Surgical History Surgery Date Site/Laterality Comments HYSTERECTOMY hysterectomy NEUROPLASTY / TRANSPOSITION ULNAR NERVE AT ELBOW 06/26/2015 - 06/25/2016 Left CHOLECYSTECTOMY 06/25/2013 Cholecystectomy FOOT SURGERY Left TUBAL LIGATION SECTION X 3 SPINE SURGERY L-4, L-5, discectomy Medical History Medical History Date Comments GERD (gastroesophageal reflux disease) Hypertension Hypertension, tr eated by PCP Fibromyalgia Lumbar disc herniation Spinal stenosis of lumbar region Arthritis Low back pain Family History Medical History Relation Name Comments Diabetes Father Heart attack Father Stroke Father Heart disease Mother Hyperlipidemia Mother Hypertension Mother Heart disease Other 1 Family history of heart problems; Hypertension Other 2 Family history of Hypertension; Stroke Other 3 Family history of Stroke; Arthritis Other 4 Family history of arthritis; Cancer Other 5 Kidney disease Other 5 Family histor y of kidney problems; Relation Name Status Comments Father Mother Alive Other 1 Other 2 Other 3 Other 4 Other 5 Social History Tobacco Use Types Packs/Day Years Used Date Smoking Tobacco: Former Cigarettes 1 20 0 01/11/2001 - 01/11/2021 Smokeless Tobacco: Never Tobacco Cessation:Counseling Given: Not Answered Comments:reduced to less than 1/2 pack daily Alcohol Use Standard Drinks/Week Comments No 0 (1 standard drink = 0.6 oz pur e alcohol) AUDIT-C Answer Date Recorded Frequency of Alcohol Consumption Not on file 09/20/2022 Q2: How many drinks containi ng alcohol do you have on a typical day when you are drinking? 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 Gender Identity Not on file Sexual Orientation Not on file Obstetrics History Last Filed Vital Signs Vital Sign Reading Time Taken Comments Blood Pressure 134/85 07/04/2023 2:54 PM BRAND SALES CONSULTANT Pulse 65 07/04/2023 2:54 PM BRAND SALES CONSULTANT Temperature 36.2 C (97.1 F) 03/23/2023 6:20 PM CDT Respiratory Rate 18 07/04/2023 2:54 PM BRAND SALES CONSULTANT Oxygen Saturation 100% 03/23/2023 8:05 PM CDT Inhaled Oxygen Concentration - - Weight 110.2 kg (243 lb) 07/04/2023 2:54 PM BRAND SALES CONSULTANT Height 166.4 cm (5' 5.5 ) 07/04/2023 2:54 PM BRAND SALES CONSULTANT Body Mass Index 39.82 07/04/2023 2:54 PM BRAND SALES CONSULTANT Plan of Treatment Health Maintenance Due Date Last Done Comments Breast Cancer Screening-Mammogram 1965 Colon Cancer Screening-Colonoscopy 1965 Hepatitis C Screening 1965 Hepatitis B Screening 1983 Regular Well Visit/Exam 18-64 1983 Zoster Vaccine (1 of 2) 2015 Lung Cancer Screening 10/17/2021 10/17/2020 Depression Screening 11/23/2023 11/22/2022, 11/22/2022, 09/19/2022, Additional history exists Influenza Vaccine (#1) 2024 , 05/23/2022, 04/05/2018, Additional history exists DTaP/Tdap/Td Vaccine (2 - Td or Tdap) 09/17/2025 09/18/2015 Pneumococcal vaccine <65 Aged Out No longer eligible based on patient's age to complete this topic Goals Goal Patient Goal Type Associated Problems Recent Progress Patient-Stated? Author -Pain Behavioral Health On track( 021 3:17 PM CDT) No Leslie Dale, MARLEE Note: Patient will describe how unrelieved pain will be managed. -Pain Behavioral Health On track( 023 9:20 AM CDT) No Mariza Cintron RN Note: Patient will establish a comfort-function goal and identify the pain level that will allow the patient to perform desired activities and achieve an acceptable quality of life. Insurance [facility] OPEN ACCESS [facility] Care Teams Torpedoman'S Mate Relationship Specialty Start Date End Date Hari Alcantara MD [address] [place] [address] [address] [address] PCP - General Family Medicine 05/28/22 Janie Hunter, RN Registered Nurse Pain Management 05/30/17 Leslie Dale, RN Registered Nurse 08/08/17 Jessy Barboza 08/28/17 Gaby Stacy, RN Registered Nurse 09/20/17
--- OUTSIDE RECORDS SUMMARY | 2024-08-17 11:16 | XMS_ITS | Referral Summary ---
Author Organization [facility] Address [address] [place] [address] Care Team Providers Care Tube Cutter Name Role Phone Janie Hunter RN Unavailable UnavailLeslie Mora RN Unavailable UnavailJessy Laguans Unavailable Unavailable Gaby Stacy RN Unavailable Un available Hari Alcantara MD Primary Care Provider [phone] Allergies Active Allergy Reactions Criticality Noted Date [...] (09/02/2022): Added automatically from request for surgery [id number] Trochanteric bursitis of left hip 06/01/2022 Left hip pain 06/01/2022 Lumbar post-laminectomy syndrome 01/27/2021 DDD (degenerative disc disease), lumbar 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 12/24 Sacroiliitis ([facility]) - Right 12/03/2019 Insomnia secondary to chronic [...] stenosis 08/05/2015 Common bile duct calculus 08/05/2013 Social History Tobacco Use Types Packs/Day Years [...] on file Legal Sex Female 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 Gender Identity Not on file Sexual Orientation Not on file Last Filed Vital Signs Vital Sign Reading Time Taken Comments Blood Pressure 134/85 07/04/2023 2:54 PM AIRCRAFT PAINTER APPRENTICE Pulse 65 07/04/2023 2:54 PM AIRCRAFT PAINTER APPRENTICE Temperature 36.2 C (97.1 F) 03/23/2023 6:20 PM CDT Respiratory Rate 18 07/04/2023 2:54 PM AIRCRAFT PAINTER APPRENTICE Oxygen Saturation 100% 03/23/2023 8:05 PM CDT Inhaled Oxygen Concentration - - Weight 110.2 kg (243 lb) 07/04/2023 2:54 PM AIRCRAFT PAINTER APPRENTICE Height 166.4 cm (5' 5.5 ) 07/04/2023 2:54 PM AIRCRAFT PAINTER APPRENTICE Body Mass Index 39.82 07/04/2023 2:54 PM AIRCRAFT PAINTER APPRENTICE Plan of Treatment Not on file Goals Goal Patient Goal Type Associated Problems Recent Progress Patient-Stated? Author -Pain Behavioral Health On track( 021 3:17 PM CDT) No Leslie Dale, RN Note: Patient will describe how unrelieved pain will be managed. -Pain Behavioral Health On track( 023 9:20 AM CDT) No Mariza Cintron, MARLEE Note: Patient will establish a comfort-function goal and identify the pain level that will allow the patient to perform desired activities and achieve an acceptable quality of life. Insurance [facility] OPEN ACCESS [facility] Care Teams Tube Cutter Relationship Specialty Start Date End Date Hari Alcantara MD [address] [place] [address] [place] [address] PCP - General Family Medicine 05/28/22 Janie Hunter, RN Registered Nurse Pain Management 05/30/17 Leslie Dale, RN Registered Nurse 08/08[facility]17 [facility] Gaby Stacy, RN Registered Nurse 09/20/17
--- NOTE | 2024-08-17 12:16 | ED.GENADULT ---
HPI - General Adult General Chief complaint: Upper Respiratory Infection Stated complaint: cough, runny nose Source: patient Mode of arrival: ambulatory Limitations: no limitations History of Present Illness HPI narrative: Pt presents for evaluation of a cough for the past week. Cough is productive. She experiences shortness of breath but only during coughing episodes. She has a history of recurrent bronchitis that occurs a few times per year and this feels similar. She denies fever, chills, nausea, vomiting, or diarrhea. She was recently exposed to someone with similar symptoms. She is a former smoker with quit date one week ago. She states in the past her symptoms have responded favorably to steroids. She would like a refill on her albuterol inhaler, which she ran out of this past week. She has tried dayquil and nyquil without improvement. In the past tessalon has been effective. Related Data Home Medications ?Medication ?Instructions ?Recorded ?Confirmed ?Last Taken ?Type duloxetine 30 mg capsule,delayed 30 mg PO DAILY 12/04/22 11/08/23 Unknown History release losartan 25 mg tablet 25 mg PO DAILY 12/04/22 11/08/23 Unknown History pregabalin 75 mg capsule 75 mg PO BID 12/04/22 11/08/23 Unknown History pantoprazole 40 mg tablet,delayed 40 mg PO DAILY 11/08/23 11/08/23 Unknown History release Allergies Allergy/AdvReac Type Severity Reaction Status Date / Time codeine Allergy Mild Unknown Verified 11/08/23 18:10 lisinopril AdvReac Mild Cough Verified 11/08/23 18:10 powder AdvReac Mild Other Uncoded 11/08/23 18:10 Review of Systems Review of Systems: CONSTITUTIONAL: Denies fever, chills, or sweats. EYES: Denies visual changes, redness, or discharge. ENT: Denies rhinorrhea, congestion, sore throat, or otalgia. CARDIOVASCULAR: Denies chest pain, palpitations, or edema. RESPIRATORY: Reports cough and SOB only during coughing episodes. GASTROINTESTINAL: Denies abdominal pain, nausea, vomiting, or diarrhea. GENITOURINARY: Denies dysuria or hematuria. SKIN: Denies rash or itching. MUSCULOSKELETAL: Denies back pain, joint pain, or myalgia. NEUROLOGIC: Denies headache, numbness, dizziness, or weakness. PSYCHIATRIC: Denies anxiety or depression. [facility] Past Medical History Medical History Cough Back pain with history of spinal surgery Chronic back pain Surgical History Surgical History H/O foot surgery History of hysterectomy Previous back surgery Family History Family History Mother Family history non-contributory Social History Social History Smoking packs per day: 1 Smoking cigarettes per day: 20.0 Smoking status: Current every day smoker Alcohol intake: never Substance use: never Living arrangements: with family Gender identity (if verbalized by the patient): Female Spiritual care concerns: No Exam Narrative: GENERAL: Well-appearing, well-nourished, and in no acute distress. HEAD: Normocephalic, atraumatic. EYES: PERRLA and EOMI. ENT: Nares clear, no rhinorrhea or epistaxis. Mucous membranes moist. Oropharynx without tonsillar hypertrophy exudate or other lesions. Bilateral TMs pearly foutnain nonbulging NECK: Supple. No adenopathy or masses. No carotid bruits or JVD CHEST: Cough present on exam. Clear to auscultation. No respiratory distress. No wheezes rales or rhonchi HEART: Regular rate and rhythm. No murmur heard. Normal peripheral pulses. ABDOMEN: Soft, nontender, nondistended, normal active bowel sounds. EXTREMITIES: Normal range of motion. No edema. SKIN: Warm, dry, no rash. NEURO: No focal deficits. Alert and oriented x3. PSYCH: Normal mood and affect. Course Course Emergency Course: This is a 59-year-old female who presented for evaluation of a cough. She has a history of recurrent bronchitis and this feels similar. I did offer to check a chest x-ray. She declined. I think this is reasonable. She would like a prescription for prednisone and albuterol. She would also like to be sent home with Tessalon. These are reasonable request. Meds were submitted. She should follow-up with her primary care provider and continue not to smoke. She should go to the ER for worsening symptoms. Pt in agreement with plan of care. Level of Care: Express Care Visit Vital Signs Vital signs: Vital Signs Temperature 36.6 C 08/17/24 11:16 Pulse Rate 55 L 08/17/24 11:16 Respiratory Rate 08/17/24 11:16 Blood Pressure 170/84 H 08/17/24 11:16 Pulse Oximetry 97 08/17/24 11:16 Oxygen Delivery Room Air 08/17/24 11:16 Temperature 36.6 C 08/17/24 11:16 Pulse Rate 55 L 08/17/24 11:16 Respiratory Rate 08/17/24 11:16 Blood Pressure 170/84 H 08/17/24 11:16 Pulse Oximetry 97 08/17/24 11:16 Oxygen Delivery Room Air 08/17/24 11:16 Medical Decision Making Vital Signs Vital Signs: Vital Signs Temperature 36.6 C 08/17/24 11:16 Pulse Rate 55 L 08/17/24 11:16 Respiratory Rate 08/17/24 11:16 Blood Pressure 170/84 H 08/17/24 11:16 Pulse Oximetry 97 08/17/24 11:16 Oxygen Delivery Room Air 08/17/24 11:16 Temperature 36.6 C 08/17/24 11:16 Pulse Rate 55 L 08/17/24 11:16 Respiratory Rate 08/17/24 11:16 Blood Pressure 170/84 H 08/17/24 11:16 Pulse Oximetry 97 08/17/24 11:16 Oxygen Delivery Room Air 08/17/24 11:16 Discharge Plan Discharge Clinical Impression: Bronchitis Patient Disposition: Home, Self-Care Condition: Stable Instructions: Antibiotic Form, Acute Bronchitis (ED) Patient Language: Korean Prescriptions: New albuterol sulfate [Ventolin HFA] 90 mcg/actuation HFA aerosol inhaler 2 puff inhalation QID PRN (Reason: shortness of breath or wheezing) Qty: 8.5 0RF prednisone 50 mg tablet 50 mg PO DAILY Qty: 5 0RF benzonatate 200 mg capsule 200 mg PO TID PRN (Reason: cough) Qty: 30 0RF No Action duloxetine 30 mg capsule,delayed release(DR/EC) 30 mg PO DAILY pregabalin 75 mg capsule 75 mg PO BID losartan 25 mg tablet 25 mg PO DAILY pantoprazole 40 mg tablet,delayed release (DR/EC) 40 mg PO DAILY benzonatate 200 mg capsule 200 mg PO TID PRN (Reason: cough) Qty: 20 0RF albuterol sulfate 90 mcg/actuation HFA aerosol inhaler 2 inh inhalation QID PRN (Reason: shortness of breath or wheezing) Qty: 8.5 0RF Follow-up/Referrals: Quinton,Hari Murillo MD [Primary Care Provider] - Time of Disposition: 12:13
== END 2024-08-17 12:19 | disposition home or self-care (01) ==
PROVIDERS: Emergency Provider Nurse Practitioner; PCP Family Medicine
DX: J40 Bronchitis, not specified as acute or chronic (principal); Z87.891 Personal history of nicotine dependence
CPT/HCPCS: 99213; G0463